=== PATIENT | female | born 1960 | race Two or more races ===

== ENCOUNTER 2025-05-28 08:06 | Inpatient (IN) | payer MEDICAID, OTHER ==
[~2025-05-28] VITALS: Ht 160 cm; Wt 64.0 kg
--- NOTE | 2025-05-28 08:43 | ED.PDOC ---
History of Present Illness HPI Comments 64-year-old female the ER with prior medical history of diabetes: Surgical history of varicose veins on tonsillectomy and the chief complaint of abdominal pain. Patient reports on having sharp left upper quadrant pain which radiate to the back for the past two weeks and the pain has worsened today. Patient notes that the pain worsens when he eats an upon palpation. Patient has a pain type of 9/10. Denies chills, fever, N/V/D, SOB, CP. No other associated symptoms, modifiers, recent injuries or sick contacts present at this time. 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 Family History Family History: Reviewed,noncontributory to illness, Unknown Social History Smoker: Non-Smoker Alcohol: Denies ETOH Use Drugs: Denies Drug Use Lives In: Home Constitutional: denies: chills, diaphoresis, fatigue, fever, malaise, sweats, weakness, others EENTM: denies: blurred vision, double vision, ear bleeding, ear discharge, ear drainage, ear pain, ear ringing, eye pain, eye redness, hearing loss, mouth pain, mouth swelling, nasal discharge, nose bleeding, nose congestion, nose pain, photophobia, tearing, throat pain, throat swelling, voice changes, others Respiratory: denies: cough, hemoptysis, orthopnea, SOB at rest, shortness of breath, SOB with excertion, stridor, wheezing, others Cardiovascular: denies: chest pain, dizzy spells, diaphoresis, Dyspnea on exertion, edema, irregular heart beat, left arm pain, lightheadedness, palpitations, PND, syncope, others Gastrointestinal: reports: abdominal pain; denies: abdomen distended, blood streaked bowels, constipated, diarrhea, dysphagia, difficulty swallowing, hematemesis, melena, nausea, poor appetite, poor fluid intake, rectal bleeding, rectal pain, vomiting, others Genitourinary: denies: abnormal vagina bleeding, burning, dyspareunia, dysuria, flank pain, frequency, hematuria, incontinence, pain, , vagina discharge, urgency, others Neurological: denies: dizziness, fainting, headache, left sided numbness, left sided weakness, numbness, paresthesia, pre-existing deficit, right sided numbness, right sided weakness, seizure, speech problems, tingling, tremors, weakness, others Musculoskeletal: reports: back pain; denies: gout, joint pain, joint swelling, muscle pain, muscle stiffness, neck pain, others Integumetry: denies: bruises, change in color, change in hair/nails, dryness, laceration, lesions, lumps, rash, wounds, others Allergic/Immunocompromised: denies: Difficulty Healing, Frequent Infections, Hives, Itching, others Hematologic/Lymphatic: denies: anemia, blood clots, easy bleeding, easy br uising, swollen glands, others Endocrine: denies: excessive hunger, excessive sweating, excessive thirst, excessive urination, flushing, intolerance to cold, intolerance to heat, unexplained weight gain, unexplained weight loss, others Psychiatric: denies: anxiety, bipolar disorder, depression, hopeless, panic disorder, schizophrenia, sleepless, suicidal, others All Other Systems: Reviewed and Negative Physical Exam General Appearance: Moderate Distress, Normal HEENT: Normal ENT Inspection, Pharynx Normal, TMs Normal Neck: Full Range of Motion, Non-Tender, Normal, Normal Inspection Respiratory: Chest Non-Tender, Lungs Clear, No Accessory Muscle Use, No Respiratory Distress, Normal Breath Sounds Cardiovascular: No Edema, No JVD, No Murmur, No Gallop, Normal Peripheral Pulses, Regular Rate/Rhythm Breast Exam: Deferred Gastrointestinal: No Organomegaly, Non Tender, No Pulsatile Mass, Normal Bowel Sounds, Soft Genitalia: Deferred Pelvic: Deferred Rectal: Deferred Extremities: No calf tenderness, Normal capillary refill, Normal inspection, Normal range of motion, Non-tender, No pedal edema Musculoskeletal : Apperance: Normal Neurologic: Alert, glost tile shader II-XII nml as Tested, No Motor Deficits, Normal Affect, Normal Mood, No Sensory Deficits Cerebellar Function: NOT DONE Reflexes: NOT DONE Skin: Dry, Normal Color, Warm Peripheral Pulses: 3+ Radial (R), 3+ Radial (L) Lymphatic: No Adenopathy Was a procedure done? Was a procedure done?: No Differential Dx Considerations may include: Anemia Electrolyte imbalance X-Ray, Labs, Meds, VS Vital Signs Date Time Temp Pulse Resp B/P (MAP) Pulse Ox O2 Delivery O2 Flow Rate FiO2 05/28/25 09:29 85 18 131/80 05/28/25 09:08 104 2 98 Room Air* 0 21 05/28/25 08:59 104 20 138/84 05/28/25 08:57 104 20 98 Room Air 05/28/25 08:57 98.4 104 20 138/84 (102) 98 98.4 05/28/25 08:08 98.0 110 13 170/98 97 98.0 Lab Test 05/28/25 11:52 05/28/25 08:30 05/28/25 08:21 Range/Units POC Glucose 293 H 70-106 mg/dl White Blood Count 8.2 4.4-10.8 10^3/uL Red Blood Count 5.46 H 4.0-5.20 10^6/uL Hemoglobin 16.0 12.2-16.2 g/dL Hematocrit 46.3 H 36.0-46.0 % Mean Corpuscular Volume 84.9 80.0-100.0 fL Mean Corpuscular Hemoglobin 29.4 28.0-32.0 pg Mean Corpuscular Hemoglobin Concent 34.6 32.0-36.0 g/dL Red Cell Distribution Width 13.1 11.8-14.3 % Platelet Count 261 140-450 10^3/uL Mean Platelet Volume 8.6 6.9-10.8 fL Neutrophils (%) (Auto) 66.0 37.0-80.0 % Lymphocytes (%) (Auto) 23.1 10.0-50.0 % Monocytes (%) (Auto) 8.8 0.0-12.0 % Eosinophils (%) (Auto) 1.4 0.0-7.0 % Basophils (%) (Auto) 0.7 0.0-2.0 % Neutrophils # (Auto) 5.4 1.6-8.6 10 ^3/uL Lymphocytes # (Auto) 1.9 0.4-5.4 10 ^3/uL Monocytes # (Auto) 0.7 0-1.3 10 ^3/uL Eosinophils # (Auto) 0.1 0-0.8 10 ^3/uL Basophils # (Auto) 0.1 0-0.2 10 ^3/uL Nucleated Red Blood Cells 0.2 % Sodium Level 132 L 136-145 mmol/L Potassium Level 4.0 3.5-5.1 mmol/L Chloride Level 97 L 98-107 mmol/L Carbon Dioxide Level 19 L 20-31 mmol/L Anion Gap 16 H 5-15 Blood Urea Nitrogen 11 9-23 mg/dL Creatinine 0.51 L 0.550-1.02 mg/dL Glomerular Filtration Rate Calc 105 >90 mL/min BUN/Creatinine Ratio 21.6 H 10.0-20.0 Serum Glucose 355 H 74-106 mg/dL Hemoglobin A1c > 14.0 H <5.7 % A1C Calcium Level 9.8 8.7-10.4 mg/dL Lipase 39 12-53 U/L Beta-Hydroxybutyric Acid 0.413 H < 0.4 mmol/L Urine Color Light-yellow Yellow Urine Clarity Clear Clear Urine pH 5.5 5.0-9.0 Urine Specific [place] 1.031 1.001-1.035 Urine Protein Trace H Negative Urine Ketones Trace Negative Urine Blood Negative Negative /uL Urine Nitrite Negative Negative Urine Bilirubin Negative Negative Urine Urobilinogen Normal Negative mg/dL Urine Leukocyte Esterase Negative Negative /uL Urine RBC 1 0 - 4 /hpf Urine Microscopic WBC 2 0-5 /HPF Urine Squamous Epithelial Cells Few <5 /hpf Urine Bacteria Few H None Seen /hpf Urine Glucose 4+ H Normal mg/dL Current Medications Medications (Trade) Dose Ordered Sig/Zach Route Start Time Stop Time Status Last Admin Morphine Sulfate 4 mg ONCE ONCE IV 05/28/25 08:45 05/28/25 08:46 DC 05/28/25 08:59 Ondansetron HCl (Zofran) 4 mg ONCE ONCE IV 05/28/25 08:45 05/28/25 08:46 DC 05/28/25 08:58 Sodium Chloride 1,000 ml @ 1,000 mls/hr Q1H ONCE IV 05/28/25 08:45 05/28/25 09:44 DC 05/28/25 09:00 Insulin Human Regular (InsuLIN R) 6 units ONCE ONCE IV 05/28/25 12:15 05/28/25 12:16 DC 05/28/25 12:30 Patient alert. Complaining of abdominal pain. Blood sugar elevated. Hemoglobin A1c elevated. Beta hydroxybutyric acid elevated. Possible DKA. WBC within normal limits. Establish intravenous access. Was given fluids. Was given insulin. Was given morphine. Was given Zofran. Explained to the patient. Continue to monitor. Time of 1ST Reevaluation: 09:00 Reevaluation 1ST: Unchanged Patient Education/Counseling: Diagnosis, Treatment, Prognosis Family Education/Counseling: No Family Present SEPSIS Sepsis Screen Date sepsis recognized/suspect: May 28, 2025 Time Sepsis recognized/suspect: 807 Recent Procedure: No On Antibiotic Therapy: No Respiratory Rate >20: No Heart Rate >90: Yes Temp<36 C (96.8 F) or >38.3 C: No SBP <90 or MAP <65 mmHG: No New Acute Mental Status Change: No Is the patient on CPAP, BIPAP,: No Vital Signs Date Time Temp Pulse Resp B/P (MAP) Pulse Ox O2 Delivery O2 Flow Rate FiO2 05/28/25 09:29 85 18 131/80 05/28/25 09:08 104 2 98 Room Air* 0 21 05/28/25 08:59 104 20 138/84 05/28/25 08:57 104 20 98 Room Air 05/28/25 08:57 98.4 104 20 138/84 (102) 98 98.4 05/28/25 08:08 98.0 110 13 170/98 97 98.0 Laboratory Tests Test 05/28/25 08:30 White Blood Count 8.2 10^3/uL (4.4-10.8) Medications Medications Dose Ordered Sig/Zach Route Start Time Stop Time Status Last Admin Dose Admin Insulin Human Regular 6 units ONCE ONCE IV 05/28/25 12:15 05/28/25 12:16 DC 05/28/25 12:30 Morphine Sulfate 4 mg ONCE ONCE IV 05/28/25 08:45 05/28/25 08:46 DC 05/28/25 08:59 Ondansetron HCl 4 mg ONCE ONCE IV 05/28/25 08:45 05/28/25 08:46 DC 05/28/25 08:58 Sodium Chloride 1,000 ml @ 1,000 mls/hr Q1H ONCE IV 05/28/25 08:45 05/28/25 09:44 DC 05/28/25 09:00 Departure 1 Departure Time of Disposition: 17:56 Impression: Primary Impression: DKA (diabetic ketoacidosis) Qualified Codes: E13.10 - Other specified diabetes mellitus with ketoacidosis without coma Disposition: ADMITTED INPATIENT Admit to: Med Surg Condition: Guarded Critical Care Note Critical Care Time?: Yes (90 min-critical care time only) Stability Stability form required: No Heart Score Heart Score: Heart Score Response (Comments) Value History Slightly Suspicious 0 EKG Normal 0 Age 45-64 1 Risk Factors >3 or Hx ASHD 2 Troponin Normal limit 0 Total 3 I personally scribed for LEANNA CALDWELL MD ([email or web address]) on 05/28/25 at 08:42. Electronically submitted by Abner Romero ([email or web address]). LEANNA CALDWELL MD May 28, 2025 08:42
[2025-05-28 08:52] LABS: Hematocrit 46.3 % (36.0-46.0); Hemoglobin 16.0 g/dL (12.2-16.2); Mean Corpuscular Hemoglobin 29.4 pg (28.0-32.0); Mean Corpuscular Volume 84.9 fL (80.0-100.0); Nucleated Red Blood Cells % 0.2 %
[2025-05-28] MEDS: ONDANSETRON HCL 4 MG/2 ML VIAL IV ONE (08:58)
[2025-05-28] MEDS: MORPHINE SULFATE 4 MG/ML SYR/VIAL IV ONE (08:59)
[2025-05-28 09:00] LABS: Potassium 4.0 mmol/L (3.5-5.1)
[2025-05-28] MEDS: SODIUM CHLORIDE 0.9% 1,000 ML IV ONE (09:00)
[2025-05-28 09:01] LABS: Anion Gap 16 (5-15); Calcium 9.8 mg/dL (8.7-10.4)
[2025-05-28 09:03] LABS: Carbon Dioxide 19 mmol/L (20-31); Chloride 97 mmol/L (98-107); Sodium 132 mmol/L (136-145)
[2025-05-28 09:06] LABS: BUN/Creatinine Ratio 21.6 (10.0-20.0); Blood Urea Nitrogen 11 mg/dL (9-23)
[2025-05-28 09:08] VITALS: PULSE 104; RESP 2; O2SAT 98
[2025-05-28 09:08] LABS: Glucose 355 mg/dL (74-106)
[2025-05-28 09:20] LABS: Urine Protein, UAD TRACE (Negative)
[2025-05-28] MEDS: InsuLIN REG 1unit/0.01ml Soln (100units/ml) IV ONE ×2 (10:45→12:30)
[2025-05-28] MEDS ORDERED: DOCUSATE SOD 100 MG CAP PO PRN (13:00)
[2025-05-28] MEDS ORDERED: ACETAMINOPHEN 325 MG TAB PO PRN (13:00)
[2025-05-28] MEDS ORDERED: DEXTROSE (50%) 50ML SYRG IV PRN (13:00)
[2025-05-28] MEDS ORDERED: ONDANSETRON HCL 4 MG/2 ML VIAL IV PRN (13:00)
--- NOTE | 2025-05-28 13:36 | DVHHP2 ---
History of Present Illness Reason for Visit: Abdominal pain radiating to the left flank History of Present Illness Lakshmi Johnson is a 64-year-old female with past medical history diabetes and tonsillectomy who presents to the ED with left-sided abdominal pain radiating to the left flank x2 weeks. Patient reports that currently the pain is 5/10 sharp and constant. She states that there are no triggering or alleviating factors. Daughter irises at the bedside. Patient also reports that she had a bowel movement this morning. Patient's daughter states that she is compliant with her medications. She also reports that she has not seen her PCP recently. Patient denies any chest pain, shortness of breath, fever, chills, lightheadedness, weakness, dizziness, nausea vomiting, diarrhea, recent trauma or injury, recent sick contacts, or recent travels. Patient reports that she takes metformin, Lantus, enalapril, and gabapentin. Endocrine: Diabetes Past Surgical History: Tonsillectomy Family History: None Smoke: # pack years ALCOHOL: none Drugs: None Lives: with Family Domestic Violence: Neg Review of Systems Gastrointestinal: Abdominal Pain Musculoskeletal: other (Left flank) Allergies: Coded Allergies: NO KNOWN ALLERGIES (Unverified , 05/28/25) Medications Current Medications Medications Dose Ordered Sig/Zach Route Start Time Stop Time Status Last Admin Dose Admin Acetaminophen/ Hydrocodone Bitart 1 tab Q4HP PRN PO 05/28/25 13:00 UNV Ondansetron HCl 4 mg Q4HP PRN IV 05/28/25 13:00 UNV Docusate Sodium 100 mg BIDPRN PRN PO 05/28/25 13:00 UNV Acetaminophen 650 mg Q6HP PRN PO 05/28/25 13:00 UNV Morphine Sulfate 2 mg Q4HPRN PRN IV 05/28/25 13:00 UNV Diagnostic Test (Pha) 1 strip ACHS 05/28/25 17:00 UNV Insulin Human Regular ACHS SC 05/28/25 17:00 UNV Dextrose 50 ml UD PRN IV 05/28/25 13:00 UNV Exam Vital Signs Vital Signs Date Time Temp Pulse Resp B/P (MAP) Pulse Ox O2 Delivery O2 Flow Rate FiO2 05/28/25 09:29 85 18 131/80 05/28/25 09:08 98 Room Air* 0 21 05/28/25 08:57 98.4 98.4 General Appearance: Alert, Oriented X3, Cooperative, No acute distress HEENT: Atraumatic, PERRLA, EOMI, Mucous membr. moist/pink Respiratory: Clear to auscultation, Normal air movement Cardiovascular: Normal S1, Normal S2, No murmurs Abdominal: Normal bowel sounds, Soft, No hepatospenomegaly, No masses Extremities: No clubbing, No cyanosis, No edema, Normal pulses, No ten derness/swelling Skin: No rashes, No breakdown, No significant lesion Neuro: Normal gait, Normal speech, Strength at 5/5 X4 ext, Normal tone, Sensation intact Psych/Mental Status: Mental status NL, Mood NL Labs/Xrays Labs Test 05/28/25 11:52 05/28/25 08:30 05/28/25 08:21 Range/Units POC Glucose 293 H 70-106 mg/dl White Blood Count 8.2 4.4-10.8 10^3/uL Red Blood Count 5.46 H 4.0-5.20 10^6/uL Hemoglobin 16.0 12.2-16.2 g/dL Hematocrit 46.3 H 36.0-46.0 % Mean Corpuscular Volume 84.9 80.0-100.0 fL Mean Corpuscular Hemoglobin 29.4 28.0-32.0 pg Mean Corpuscular Hemoglobin Concent 34.6 32.0-36.0 g/dL Red Cell Distribution Width 13.1 11.8-14.3 % Platelet Count 261 140-450 10^3/uL Mean Platelet Volume 8.6 6.9-10.8 fL Neutrophils (%) (Auto) 66.0 37.0-80.0 % Lymphocytes (%) (Auto) 23.1 10.0-50.0 % Monocytes (%) (Auto) 8.8 0.0-12.0 % Eosinophils (%) (Auto) 1.4 0.0-7.0 % Basophils (%) (Auto) 0.7 0.0-2.0 % Neutrophils # (Auto) 5.4 1.6-8.6 10 ^3/uL Lymphocytes # (Auto) 1.9 0.4-5.4 10 ^3/uL Monocytes # (Auto) 0.7 0-1.3 10 ^3/uL Eosinophils # (Auto) 0.1 0-0.8 10 ^3/uL Basophils # (Auto) 0.1 0-0.2 10 ^3/uL Nucleated Red Blood Cells 0.2 % Sodium Level 132 L 136-145 mmol/L Potassium Level 4.0 3.5-5.1 mmol/L Chloride Level 97 L 98-107 mmol/L Carbon Dioxide Level 19 L 20-31 mmol/L Anion Gap 16 H 5-15 Blood Urea Nitrogen 11 9-23 mg/dL Creatinine 0.51 L 0.550-1.02 mg/dL Glomerular Filtration Rate Calc 105 >90 mL/min BUN/Creatinine Ratio 21.6 H 10.0-20.0 Serum Glucose 355 H 74-106 mg/dL Calcium Level 9.8 8.7-10.4 mg/dL Lipase 39 12-53 U/L Urine Color Light-yellow Yellow Urine Clarity Clear Clear Urine pH 5.5 5.0-9.0 Urine Specific [place] 1.031 1.001-1.035 Urine Protein Trace H Negative Urine Ketones Trace Negative Urine Blood Negative Negative /uL Urine Nitrite Negative Negative Urine Bilirubin Negative Negative Urine Urobilinogen Normal Negative mg/dL Urine Leukocyte Esterase Negative Negative /uL Urine RBC 1 0 - 4 /hpf Urine Microscopic WBC 2 0-5 /HPF Urine Squamous Epithelial Cells Few <5 /hpf Urine Bacteria Few H None Seen /hpf Urine Glucose 4+ H Normal mg/dL Exam: CT CT AB PEL WO CON-NO ORAL OR IV History: ABD PAIN Comparison Study: None TECHNIQUE: Multidetector CT of the abdomen AND PELVIS without IV contrast. Axial, coronal and sagittal multiplanar reformats were obtained from the axial data set by the technologist. Radiation Dose Information: CT Dose: CTDI volume is 7.55 mGy. Dose-length product is 3.92 mGy*cm FINDINGS: Bibasilar ground-glass opacities. Partially visualized heart is unremarkable. Trace pericardial effusion. Mild cardiomegaly. Otherwise, liver, spleen, pancreas and adrenal glands are unremarkable. 3.1 x 5.1 cm gallstone within the gallbladder with Limited evaluation due to motion. No significant pericholecystic edema. Kidneys, ureters and urinary bladder unremarkable. Uterus and adnexa unremarkable. Tiny hiatal hernia. Stomach is unremarkable. Small bowel loops unremarkable. Appendix is unremarkable. Moderate to large amount of fecal material within the colon. Descending colon and sigmoid diverticulosis without diverticulitis. No evidence of intraperitoneal free air or free fluid. No evidence of aortic aneurysm. No significant lymphadenopathy. Calcified injection granuloma of the left gluteal region. The remainder of the soft tissues unremarkable. Surgical clips are noted over the left inguinal region. No evidence of acute osseous abnormalities. IMPRESSION: Cholelithiasis with limited evaluation of the gallbladder due to motion. Uterus concern for acute cholecystitis, right upper quadrant ultrasound should be considered for further evaluation. Colonic diverticulosis without diverticulitis. Moderate to large amount of fecal material within the colon. ORDERING PHYSICIAN: JONATHON PALM GUIDE PROCEDURE(s): ABDL - ABDOMEN LIMITED REASON: r/o aron ORDER NUMBER(s): [id number], ACCESSION NUMBER(s): [id number] INDICATION: r/o aron TECHNIQUE: Multiple real-time sonographic images of the abdomen were obtained. COMPARISON: None FINDINGS: The liver is heterogeneous in echogenicity. The liver measures 15cm. No intrahepatic biliary ductal dilatation is noted. The gallbladder wall measures 0.3 cm and is unremarkable. Gallstone. The common duct measures 1.1 cm and is unremarkable. No pericholecystic fluid is noted. The right kidney measures 11cm. No hydronephrosis. Pancreas not seen due to overlying bowel gas The visualized portions of the IVC and aorta are grossly unremarkable. IMPRESSION: Gallstones. Dilated common bile duct. MRCP recommended SEPSIS Sepsis Screen Date sepsis recognized/suspect: May 28, 2025 Time Sepsis recognized/suspect: 0808 Recent Procedure: No On Antibiotic Therapy: No Respiratory Rate >20: No Heart Rate >90: Yes Temp<36 C (96.8 F) or >38.3 C: No SBP <90 or MAP <65 mmHG: No New Acute Mental Status Change: No Is the patient on CPAP, BIPAP,: No Physician Orders Beta-Hydroxybutyrate (05/28/25 10:45) Ct Ab Pel Wo Con-No Oral Or Iv (05/28/25 12:56) Admit (05/28/25 12:56) Allergies (05/28/25 12:56) Code Status (05/28/25 12:56) Hydrocodone-Acet 5/325mg Tab ([place] 5/32 (05/28/25 13:00) Ondansetron Hcl (Zofran) (05/28/25 13:00) Docusate Sodium Capsule (Colace Capsule) (05/28/25 13:00) Complete Blood Count (05/29/25 04:00) Comprehensive Metabolic Panel (05/29/25 04:00) Cardiac Diet-2gna,Lofat,Lochol (05/28/25 Lunch) Acetaminophen Tablet (Tylenol Tablet) (05/28/25 13:00) Morphine Sulfate Injection (05/28/25 13:00) Glucose Blood (Accu-Chek Comfort Curve T (05/28/25 17:00) Insulin R (Human) (Insulin R) (05/28/25 17:00) Dextrose 50% Syringe (05/28/25 13:00) Hemoglobin A1c (05/28/25 12:56) Vital Signs Date Time Temp Pulse Resp B/P (MAP) Pulse Ox O2 Delivery O2 Flow Rate FiO2 05/28/25 09:29 85 18 131/80 05/28/25 09:08 104 2 98 Room Air* 0 21 05/28/25 08:59 104 20 138/84 05/28/25 08:57 104 20 98 Room Air 05/28/25 08:57 98.4 104 20 138/84 (102) 98 98.4 05/28/25 08:08 98.0 110 13 170/98 97 98.0 Laboratory Tests Test 05/28/25 08:30 White Blood Count 8.2 10^3/uL (4.4-10.8) Medications Medications Dose Ordered Sig/Zach Route Start Time Stop Time Status Last Admin Dose Admin Insulin Human Regular 6 units ONCE ONCE IV 05/28/25 12:15 05/28/25 12:16 DC 05/28/25 12:30 6 UNITS Morphine Sulfate 4 mg ONCE ONCE IV 05/28/25 08:45 05/28/25 08:46 DC 05/28/25 08:59 4 MG Ondansetron HCl 4 mg ONCE ONCE IV 05/28/25 08:45 05/28/25 08:46 DC 05/28/25 08:58 4 MG Sodium Chloride 1,000 ml @ 1,000 mls/hr Q1H ONCE IV 05/28/25 08:45 05/28/25 09:44 DC 05/28/25 09:00 1,000 MLS/HR Assessment/Plan Assessment/Plan Assessment Intractable abdominal pain radiating to the left flank Hyponatremia Glucosuria Cholelithiasis rule out cholecystitis Colonic diverticulosis Uncontrolled diabetes History of tonsillectomy Plan Admit to [facility] Hemoglobin A1c ISS and Accu-[place] noted Insulin NS 1 L given in ED Antiemetics Pain management Lipase noted Beta hydroxy pending UA CT abdomen and pelvis ordered Right upper quadrant ultrasound ordered as recommended MRCP ordered Diet Home medications reconciled DVT prophylaxis-not indicated patient ambulating PUD prophylaxis-not indicated no history of GERD or GI bleed Discussed plan of care with patient's daughter, patient, and nurse [id number] Advanced care planning discussed [id number] Preventive counseling healthy eating habits, physical activity, and regular checkups Plan discussed with: Patient, Daughter My Orders Orders - JONATHON PALM Procedure Category Date Status Time Ct Ab Pel Wo Con-No CT 05/28/25 Taken Oral Or Iv 12:56 Admit ADMIT 05/28/25 Transmitted 12:56 Allergies GOLDY 05/28/25 In Process 12:56 Code Status CODE 05/28/25 Transmitted 12:56 Hydrocodone-Acet PHA 05/28/25 Logged 5/325mg Tab ([place] 13:00 Ondansetron Hcl PHA 05/28/25 Logged (Zofran) 13:00 Docusate Sodium PHA 05/28/25 Logged Capsule (Colace 13:00 Complete Blood Count LAB 05/29/25 Verified 04:00 Comprehensive LAB 05/29/25 Verified Metabolic Panel 04:00 Cardiac DIET 05/28/25 Transmitted Diet-2gna,Lofat,Lochol Lunch Acetaminophen Tablet PHA 05/28/25 Logged (Tylenol Tablet) 13:00 Morphine Sulfate PHA 05/28/25 Logged Injection 13:00 Glucose Blood PHA 05/28/25 Logged (Accu-Chek Comfort 17:00 Insulin R (Human) PHA 05/28/25 Logged (Insulin R) 17:00 Dextrose 50% Syringe PHA 05/28/25 Logged 13:00 Hemoglobin A1c LAB 05/28/25 In Process 12:56 Date of Service: May 28, 2025 Billing Provider: JONATHON PALM Common Visit Codes: 48290-EWFIOEV INP/OBS CARE (HIGH) Secondary Visit Codes: 25163-[id number] COUNSELING IND, 11217-XTSAHOIG CARE PLAN 30 MINUTES JONATHON PALM GUIDE May 28, 2025 13:36
--- NOTE | 2025-05-28 13:42 | DVH ---
Exam: CT CT AB PEL WO CON-NO ORAL OR IV History: ABD PAIN Comparison Study: None TECHNIQUE: Multidetector CT of the abdomen AND PELVIS without IV contrast. Axial, coronal and sagitta l multiplanar reformats were obtained from the axial data set by the technologist. Radiation Dose Information: CT Dose: CTDI volume is 7.55 mGy. Dose-length product is 3.92 mGy*cm FINDINGS: Bibasilar ground-glass opacities. Partially visualized heart is unremarkable. Trace pericardial effu carlo. Mild cardiomegaly. Otherwise, liver, spleen, pancreas and adrenal glands are unremarkable. 3.1 x 5.1 cm gallstone within the gallbladder with Limited evaluation due to motion. No significant perichole cystic edema. Kidneys, ureters and urinary bladder unremarkable. Uterus and adnexa unremarkable. Tiny hiatal hernia. Stomach is unremarkable. Small bowel loops unremarkable. Appendix is unremarkabl e. Moderate to large amount of fecal material within the colon. Descending colon and sigmoid divertic ulosis without diverticulitis. No evidence of intraperitoneal free air or free fluid. No evidence of aortic aneurysm. No significant lymphadenopathy. Calcified injection granuloma of the left gluteal region. The remainder of the soft tissues unremarka ble. Surgical clips are noted over the left inguinal region. No evidence of acute osseous abnormalit ies. IMPRESSION: Cholelithiasis with limited evaluation of the gallbladder due to motion. Uterus concern for acute cho lecystitis, right upper quadrant ultrasound should be considered for further evaluation. Colonic diverticulosis without diverticulitis. Moderate to large amount of fecal material within the colon.
--- NOTE | 2025-05-28 15:04 | DVH ---
INDICATION: r/o aron TECHNIQUE: Multiple real-time sonographic images of the abdomen were obtained. COMPARISON: None FINDINGS: The liver is heterogeneous in echogenicity. The liver measures 15cm. No intrahepatic bilia ry ductal dilatation is noted. The gallbladder wall measures 0.3 cm and is unremarkable. Gallstone. The common duct measures 1.1 c m and is unremarkable. No pericholecystic fluid is noted. The right kidney measures 11cm. No hydronephrosis. Pancreas not seen due to overlying bowel gas The visualized portions of the IVC and aorta are grossly unremarkable. IMPRESSION: Gallstones. Dilated common bile duct. MRCP recommended
[2025-05-28] MEDS: MORPHINE SULFATE INJ 2 MG/ml SYRG IV PRN (16:00)
[2025-05-28 17:00] VITALS: BP 141/82; PULSE 87; RESP 16; TEMP 98.2; O2SAT 98
[2025-05-28] MEDS: InsuLIN REG 1unit/0.01ml Soln (100units/ml) SC SCH (17:31)
[2025-05-28] MEDS: ACCU-CHEK COMFORT CURVE STRIP VI SCH (17:31)
--- NOTE | 2025-05-28 17:41 | DVH ---
PROCEDURE: MRI MRCP MRI Indication: dilated CBD COMPARISON: 05/28/2025 TECHNIQUE: Multiplanar multisequence images of the abdomen were obtained per MRCP protocol. FINDINGS: Cholelithiasis with the largest gallstone measuring 4.6 cm. No pericholecystic edema. CBD normal in caliber measuring 5 mm. No evidence for choledocholithiasis. Pancreatic duct normal in caliber. Adrenal glands, spleen, pancreas unremarkable. Liver demonstrates no T2 hyperintense lesions. No hyd ronephrosis. IMPRESSION: Cholelithiasis. No evidence for choledocholithiasis. Normal caliber common bile duct
[2025-05-28 19:40] VITALS: PULSE 86; RESP 18; O2SAT 0
[2025-05-28 21:00] VITALS: BP 131/80; PULSE 86; RESP 18; TEMP 98; O2SAT 97
[2025-05-29 01:37] VITALS: BP 112/62; PULSE 87; RESP 19; TEMP 98.3; O2SAT 96
[2025-05-29 05:03] VITALS: BP 120/79; PULSE 84; RESP 18; TEMP 98.1; O2SAT 84
[2025-05-29 06:02] LABS: Alanine Aminotransferase 11 U/L (7-40); Albumin 3.7 g/dL (3.2-4.8); Alkaline Phosphatase 93 U/L (46-116); Anion Gap 12 (5-15); BUN/Creatinine Ratio 13.5 (10.0-20.0); Bilirubin, Total 0.7 mg/dL (0.2-1.0); Calcium 9.0 mg/dL (8.7-10.4); Carbon Dioxide 21 mmol/L (20-31); Chloride 104 mmol/L (98-107); Potassium 3.5 mmol/L (3.5-5.1); Sodium 137 mmol/L (136-145); Total Protein 6.7 g/dL (5.7-8.2)
[2025-05-29 06:05] LABS: Hematocrit 41.6 % (36.0-46.0); Hemoglobin 14.5 g/dL (12.2-16.2); Mean Corpuscular Hemoglobin 29.6 pg (28.0-32.0); Mean Corpuscular Volume 85.2 fL (80.0-100.0); Nucleated Red Blood Cells % 0.2 %
[2025-05-29 06:08] LABS: Blood Urea Nitrogen 7 mg/dL (9-23); Glucose 161 mg/dL (74-106)
[2025-05-29 09:00] VITALS: BP_SYST 115; BP_SYST 125; BP_DIAS 11; BP_DIAS 111; BP_DIAS 77; PULSE 82; RESP 18; TEMP 98.6; O2SAT 98
[2025-05-29] MEDS: GABAPENTIN 300 MG CAP PO SCH (09:47)
[2025-05-29] MEDS: ENALAPRIL MALEATE 10 MG TAB PO SCH (09:47)
[2025-05-29 10:29] VITALS: PULSE 78; RESP 16; O2SAT 98
--- NOTE | 2025-05-29 12:11 | DVHPN2 ---
Subjective Patient seen and examined at bedside. No Complaint today Reviewed: Care Plan, H&P, Labs, Medications, Previous Orders, Radiology Changes from previous H/P or p: No Changes Gastrointestinal: Abdominal Pain Musculoskeletal: other (Left flank) Objective Vitals Vital Signs Date Time Temp Pulse Resp B/P (MAP) Pulse Ox O2 Delivery O2 Flow Rate FiO2 05/29/25 10:29 78 16 98 Room Air* 0 21 05/29/25 09:47 125/77 05/29/25 09:00 98.6 98.6 Intake/Output Intake and Output 05/29/25 07:00 Intake Total 300 ml Balance 300 ml Intake Oral 300 ml # Voids 2 General Appearance: Alert, No acute distress HEENT: Atraumatic, PERRLA, EOMI, Mucous membr. moist/pink Neck: Supple Lungs: Clear to auscultation, Normal air movement Cardiovascular: Regular rate, Normal S1, Normal S2, No murmurs, Gallops, Rubs Abdomen: Normal bowel sounds, Soft, No tenderness Neuro: Cranial nerves 3-12 NL Psych/Mental Status: Mental status NL Medications Current Medications Medications Dose Ordered Sig/Zach Route Start Time Stop Time Status Last Admin Dose Admin Acetaminophen/ Hydrocodone Bitart 1 tab Q4HP PRN PO 05/28/25 13:00 Ondansetron HCl 4 mg Q4HP PRN IV 05/28/25 13:00 Docusate Sodium 100 mg BIDPRN PRN PO 05/28/25 13:00 Acetaminophen 650 mg Q6HP PRN PO 05/28/25 13:00 Morphine Sulfate 2 mg Q4HPRN PRN IV 05/28/25 13:00 05/29/25 05:19 2 MG Diagnostic Test (Pha) 1 strip ACHS 05/28/25 17:00 05/29/25 06:11 1 STRIP Insulin Human Regular ACHS SC 05/28/25 17:00 05/29/25 11:23 8 UNITS Dextrose 50 ml UD PRN IV 05/28/25 13:00 Enalapril Maleate 10 mg DAILY PO 05/29/25 10:00 05/29/25 09:47 10 MG Gabapentin 300 mg DAILY PO 05/29/25 10:00 05/29/25 09:47 300 MG Laboratory Results Laboratory Tests 05/29/25 04:37 Chemistry Test 05/29/25 04:37 Albumin 3.7 g/dL (3.2-4.8) Calcium Level 9.0 mg/dL (8.7-10.4) Total Protein 6.7 g/dL (5.7-8.2) LFT Test 05/29/25 04:37 Alanine Aminotransferase (ALT) 11 U/L (7-40) Alkaline Phosphatase 93 U/L (46-116) Aspartate Amino Transferase (AST) 21 U/L (13-40) Total Bilirubin 0.7 mg/dL (0.2-1.0) Urinalysis Test 05/28/25 08:21 Urine Color Light-yellow (Yellow) Urine Clarity Clear (Clear) Urine pH 5.5 (5.0-9.0) Urine Specific [place] 1.031 (1.001-1.035) Urine Protein Trace (Negative) H Urine Ketones Trace (Negative) Urine Blood Negative /uL (Negative) Urine Nitrite Negative (Negative) Urine Bilirubin Negative (Negative) Urine Urobilinogen Normal mg/dL (Negative) Urine Leukocyte Esterase Negative /uL (Negative) Urine RBC 1 /hpf (0 - 4) Urine Microscopic WBC 2 /HPF (0-5) Urine Squamous Epithelial Cells Few /hpf (<5) Urine Bacteria Few /hpf (None Seen) H Urine Glucose 4+ mg/dL (Normal) H Labs and/or images reviewed: Labs reviewed by me Assessment/Plan Assessment/Plan Intractable abdominal pain radiating to the left flank Hyponatremia Glucosuria Cholelithiasis rule out cholecystitis Colonic diverticulosis Uncontrolled diabetes History of tonsillectomy Continuing current management. Showed dilated common bile duct with cholelithiasis. Order MRCP. Continuing sliding scale insulin. This medical document was created using an electronic medical record system with [employer] direct computerized dictation system. Although this document has been carefully reviewed, there may still be some phonetic and typographical errors. These areas are purely typographical due to imperfections of the software programs, and do not reflect any compromise in the patient's medical care. Plan discussed with: Patient Date of Service: May 29, 2025 Billing Provider: ANTONIETA MORENO MD Common Visit Codes: [id number] INP/OBS CARE(HIGH) ANTONIETA MORENO MD May 29, 2025 12:11
[2025-05-29 13:00] VITALS: BP 112/67; PULSE 51; RESP 20; TEMP 98.6; O2SAT 98
[2025-05-29 17:00] VITALS: BP 115/67; PULSE 50; RESP 18; TEMP 98.5; O2SAT 97
[2025-05-29] MEDS: HYDROcodone-ACET 5/325MG TAB PO PRN (21:57)
[2025-05-30 01:00] VITALS: BP 118/68; PULSE 86; RESP 18; TEMP 98.1; O2SAT 97
[2025-05-30 05:00] VITALS: BP 108/73; PULSE 83; RESP 16; TEMP 97.6; O2SAT 97
[2025-05-30] MEDS ORDERED: GABA-1250 PO (06:35)
[2025-05-30] MEDS ORDERED: METF-370 PO (06:48)
[2025-05-30] MEDS ORDERED: IBUP-1454 PO (06:48)
[2025-05-30] MEDS ORDERED: ACET325T82 PO (06:48)
[2025-05-30] MEDS ORDERED: METH-1182 PO (06:48)
[2025-05-30] MEDS ORDERED: FENO160T PO (06:48)
[2025-05-30 08:16] VITALS: BP 106/71; PULSE 70; RESP 17; TEMP 96.3; O2SAT 99
[2025-05-30 12:10] VITALS: BP 122/50; PULSE 77; RESP 15; TEMP 97.3; O2SAT 96
--- NOTE | 2025-05-30 14:29 | DVHPN2 ---
Subjective Patient is seen and examined at bedside. Complain of abdominal pain today but no nausea or vomiting. Reviewed: Care Plan, H&P, Labs, Medications, Previous Orders, Radiology Changes from previous H/P or p: No Changes Gastrointestinal: Abdominal Pain Musculoskeletal: other (Left flank) Objective Vitals Vital Signs Date Time Temp Pulse Resp B/P (MAP) Pulse Ox O2 Delivery O2 Flow Rate FiO2 05/30/25 12:10 97.3 77 15 122/50 (74) 96 97.3 05/30/25 08:00 Room Air* 0 21 Intake/Output Intake and Output 05/30/25 07:00 Intake Total 500 ml Balance 500 ml Intake Oral 500 ml # Voids 1 General Appearance: Alert, Oriented X3, Cooperative, No acute distress HEENT: Atraumatic, PERRLA, EOMI, Mucous membr. moist/pink Neck: Supple Lungs: Clear to auscultation, Normal air movement Cardiovascular: Regular rate, Normal S1, Normal S2, No murmurs, Gallops, Rubs Abdomen: Normal bowel sounds, Soft, No tenderness Neuro: Cranial nerves 3-12 NL Psych/Mental Status: Mental status NL Medications Current Medications Medications Dose Ordered Sig/Zach Route Start Time Stop Time Status Last Admin Dose Admin Acetaminophen/ Hydrocodone Bitart 1 tab Q4HP PRN PO 05/28/25 13:00 05/30/25 10:18 1 TAB Ondansetron HCl 4 mg Q4HP PRN IV 05/28/25 13:00 Docusate Sodium 100 mg BIDPRN PRN PO 05/28/25 13:00 Acetaminophen 650 mg Q6HP PRN PO 05/28/25 13:00 Morphine Sulfate 2 mg Q4HPRN PRN IV 05/28/25 13:00 05/29/25 05:19 2 MG Diagnostic Test (Pha) 1 strip ACHS 05/28/25 17:00 05/30/25 11:47 1 STRIP Insulin Human Regular ACHS SC 05/28/25 17:00 05/30/25 11:48 6 UNITS Dextrose 50 ml UD PRN IV 05/28/25 13:00 Enalapril Maleate 10 mg DAILY PO 05/29/25 10:00 05/29/25 09:47 10 MG Gabapentin 300 mg DAILY PO 05/29/25 10:00 05/30/25 10:18 300 MG Laboratory Results Laboratory Tests 05/29/25 04:37 Urinalysis Test 05/28/25 08:21 Urine Color Light-yellow (Yellow) Urine Clarity Clear (Clear) Urine pH 5.5 (5.0-9.0) Urine Specific [place] 1.031 (1.001-1.035) Urine Protein Trace (Negative) H Urine Ketones Trace (Negative) Urine Blood Negative /uL (Negative) Urine Nitrite Negative (Negative) Urine Bilirubin Negative (Negative) Urine Urobilinogen Normal mg/dL (Negative) Urine Leukocyte Esterase Negative /uL (Negative) Urine RBC 1 /hpf (0 - 4) Urine Microscopic WBC 2 /HPF (0-5) Urine Squamous Epithelial Cells Few /hpf (<5) Urine Bacteria Few /hpf (None Seen) H Urine Glucose 4+ mg/dL (Normal) H Labs and/or images reviewed: Labs reviewed by me Assessment/Plan Assessment/Plan Intractable abdominal pain radiating to the left flank Hyponatremia Glucosuria Cholelithiasis rule out cholecystitis Colonic diverticulosis Uncontrolled diabetes History of tonsillectomy Continuing current management. Showed dilated common bile duct with cholelithiasis. MRCP showed no common bile duct dilation Continuing sliding scale insulin. Advanced diet to regular diet Continuing empiric antibiotics Discharge planning This medical document was created using an electronic medical record system with [employer] computerized dictation system. Although this document has been carefully reviewed, there may still be some phonetic and typographical errors. These areas are purely typographical due to imperfections of the software programs, and do not reflect any compromise in the patient's medical care. Plan discussed with: Patient Date of Service: May 30, 2025 Billing Provider: ANTONIETA MORENO MD Common Visit Codes: [id number] INP/OBS CARE(HIGH) ANTONIETA MORENO MD May 30, 2025 14:29
[2025-05-30] MEDS ORDERED: GLIP5TAB21 PO (14:35)
[2025-05-30] MEDS ORDERED: METF-372 PO (14:35)
[2025-05-30] MEDS ORDERED: HYDR-4902 PO (14:35)
--- NOTE | 2025-06-01 11:03 | DVHDS2 ---
Discharge Summary Date of Admission May 28, 2025 at 12:56 Date of Discharge: May 30, 2025 Admitting Diagnosis Intractable abdominal pain radiating to the left flank Hyponatremia Glucosuria Cholelithiasis rule out cholecystitis Colonic diverticulosis Uncontrolled diabetes History of tonsillectomy Labs/Diagnostic Data: Laboratory Results Test 05/30/25 11:31 05/29/25 04:37 05/28/25 08:30 05/28/25 08:21 POC Glucose 274 mg/dl (70-106) White Blood Count 6.0 10^3/uL (4.4-10.8) Red Blood Count 4.88 10^6/uL (4.0-5.20) Hemoglobin 14.5 g/dL (12.2-16.2) Hematocrit 41.6 % (36.0-46.0) Mean Corpuscular Volume 85.2 fL (80.0-100.0) Mean Corpuscular Hemoglobin 29.6 pg (28.0-32.0) Mean Corpuscular Hemoglobin Concent 34.8 g/dL (32.0-36.0) Red Cell Distribution Width 13.3 % (11.8-14.3) Platelet Count 227 10^3/uL (140-450) Mean Platelet Volume 8.5 fL (6.9-10.8) Neutrophils (%) (Auto) 48.4 % (37.0-80.0) Lymphocytes (%) (Auto) 36.5 % (10.0-50.0) Monocytes (%) (Auto) 11.3 % (0.0-12.0) Eosinophils (%) (Auto) 3.3 % (0.0-7.0) Basophils (%) (Auto) 0.5 % (0.0-2.0) Neutrophils # (Auto) 2.9 10 ^3/uL (1.6-8.6) Lymphocytes # (Auto) 2.2 10 ^3/uL (0.4-5.4) Monocytes # (Auto) 0.7 10 ^3/uL (0-1.3) Eosinophils # (Auto) 0.2 10 ^3/uL (0-0.8) Basophils # (Auto) 0 10 ^3/uL (0-0.2) Nucleated Red Blood Cells 0.2 % Sodium Level 137 mmol/L (136-145) Potassium Level 3.5 mmol/L (3.5-5.1) Chloride Level 104 mmol/L (98-107) Carbon Dioxide Level 21 mmol/L (20-31) Anion Gap 12 (5-15) Blood Urea Nitrogen 7 mg/dL (9-23) Creatinine 0.52 mg/dL (0.550-1.02) Glomerular Filtration Rate Calc 104 mL/min (>90) BUN/Creatinine Ratio 13.5 (10.0-20.0) Serum Glucose 161 mg/dL (74-106) Calcium Level 9.0 mg/dL (8.7-10.4) Total Bilirubin 0.7 mg/dL (0.2-1.0) Aspartate Amino Transferase (AST) 21 U/L (13-40) Alanine Aminotransferase (ALT) 11 U/L (7-40) Alkaline Phosphatase 93 U/L (46-116) Total Protein 6.7 g/dL (5.7-8.2) Albumin 3.7 g/dL (3.2-4.8) Hemoglobin A1c > 14.0 % A1C (<5.7) Lipase 39 U/L (12-53) Beta-Hydroxybutyric Acid 0.413 mmol/L (< 0.4) Urine Color Light-yellow (Yellow) Urine Clarity Clear (Clear) Urine pH 5.5 (5.0-9.0) Urine Specific [place] 1.031 (1.001-1.035) Urine Protein Trace (Negative) Urine Ketones Trace (Negative) Urine Blood Negative /uL (Negative) Urine Nitrite Negative (Negative) Urine Bilirubin Negative (Negative) Urine Urobilinogen Normal mg/dL (Negative) Urine Leukocyte Esterase Negative /uL (Negative) Urine RBC 1 /hpf (0 - 4) Urine Microscopic WBC 2 /HPF (0-5) Urine Squamous Epithelial Cells Few /hpf (<5) Urine Bacteria Few /hpf (None Seen) Urine Glucose 4+ mg/dL (Normal) Other Laboratory Tests 05/29/25 04:37 Brief Hx & Hospital Course: This is a 64 years old female with past medical history diabetes come to emergency department because of left-sided abdominal pain radiating to the left flank for two weeks. The patient was admitted. CT abdomen pelvis showed cholelithiasis. Ultrasound showed possible common bile duct dilation however MRCP showed normal common bile duct. Her abdominal pain resolved. I am going to discharge her home. Advised her to follow up with primary care physician 1-2 weeks. Advised her to request primary care physician to send her to surgeon for consultation if her abdominal pain still continuing to bother her. Activity as tolerated. Diet low-salt low-cholesterol carb controlled diet. Follow up as a above. Physical exam: HEENT: Normocephalic atraumatic pupils equal react to light and accommodation. Extraocular muscles intact, conjunctiva pink, oropharynx moist, no thrush, no exudate. Lymphatic: No lymphadenopathy Cardiovascular exam: S1, S2 was heard. No murmurs, rubs, gallops Lung: Clear on auscultation bilaterally, no wheeze, rale, rhonchi. GI: Abdominal soft, nondistended, nontenderness, positive bowel sounds. Extremity: No crepitus, cyanosis, edema. Pedal pulses present bilateral. Full range of motion. Skin: Normal turgor, no rash. Psych: Alert, oriented x3. Neurology: No focal deficits, cranial nerve II to XII grossly intact. This medical document was created using an electronic medical record system with [employer] dictation system. Although this document has been carefully reviewed, there may still be some phonetic and typographical errors. These areas are purely typographical due to imperfections of the software programs, and do not reflect any compromise in the patient's medical care. Condition at Discharge: Stable Final Diagnosis/Problems List Intractable abdominal pain radiating to the left flank Hyponatremia Glucosuria Cholelithiasis rule out cholecystitis Colonic diverticulosis Uncontrolled diabetes History of tonsillectomy Continuing current management. Showed dilated common bile duct with cholelithiasis. Order MRCP. Continuing sliding scale insulin. This medical document was created using an electronic medical record system with [employer] dictation system. Although this document has been carefully reviewed, there may still be some phonetic and typographical errors. These areas are purely typographical due to imperfections of the software programs, and do not reflect any compromise in the patient's medical care. Discharge Disposition: Home Discharge Instruct/Medications Diet: Consistent carbohydrate Activity: No Restrictions, As Tolerated Follow Up/Referral: pcp 1-2 weeks Surgeon as outpatient if continue to have abdominal pain Medications: see med list Scheduled Fenofibrate (Fenofibrate), 1 TAB PO DAILY, (Reported) Gabapentin (Gabapentin), 300 MG PO DAILY, (Reported) Glipizide (Glipizide), 1 TAB PO BID Metformin Hydrochloride (Metformin Hcl), 1 TAB PO BID Methocarbamol (Methocarbamol), 750 MG PO Q8HPRN, (Reported) Scheduled PRN Acetaminophen (Apap), 1,000 MG PO Q6HPRN PRN for PAIN SCALE 4-6 OR TEMP>100.4, (Reported) Hydrocodone-Acetaminophen (Hydrocodone Bitartrate/AC 5-325 mg), 1 TAB PO Q4HP PRN Ibuprofen (Ibuprofen), 600 MG PO Q6HP PRN for PAIN, (Reported) Discontinued Medications Metformin Hydrochloride (Metformin Hcl), 500 MG PO BIDAC, (Reported) Discharge Statement: "Patient was advised to return to the ER or call 911 if any headaches, dizziness, shortness of breath, chest pain, abdominal pain, bleeding, fevers, or worsening of medical condition. Patient was counseled about treatment plan, medications, possible side effects, patientverbalized understanding. All questions were answered to the best of my ability. This discharge took greater then 30 minutes in planning, reviewing documentation, counseling the patient, and discussing with other team members." ASSESSMENT ASSESSMENT Assessment DKA, abdominal pain Date of Service: May 30, 2025 Billing Provider: ANTONIETA MORENO MD Common Visit Codes: [id number] DISCH DAY >30min ANTONIETA MORENO MD Jun 01, 2025 11:03
== END 2025-05-30 15:30 | disposition home or self-care (01) | DRG 420 ==
LOC: ER 08:06 → OVERFLOW 12:56 → CENTRAL 05-29 22:11
PROVIDERS: ADMIT Internal Medicine; ATTEND Internal Medicine
DX: E11.10 Type 2 diabetes mellitus with ketoacidosis without coma (principal); K80.10 Calculus of gallbladder with chronic cholecystitis without obstruction; E87.1 Hypo-osmolality and hyponatremia; K57.30 Diverticulosis of large intestine without perforation or abscess without bleeding
CPT/HCPCS: 36415; 74176; 74181; 76705; 80048; 80053; 81001; 82010; 82962; 83036; 83690; 85025; 96361; 96374; 96375; 99291; G0378; J1815; J2405